=== PATIENT | female | born 1995 | race Caucasian/White ===

== ENCOUNTER → 2022-06-28 14:07 | Outpatient (CLI) | payer OTHER, SELFPAY ==
--- NOTE | ~2022-06-28 | US_ITS ---
EXAMINATION: US pelvic complete w TV DATE: 06/28/2022 14:42 INDICATION: Pelvic pain Comparison:No prior studies for comparison. TECHNIQUE: Multiple transabdominal and endovaginal sonographic images of the pelvis performed. FINDINGS: The uterus measures 7.8 x 3.3 x 4.3 cm. The endometrial complex measures 6 mm. The right ovary measures 1.9 x 1.4 x 1.2 cm and the left ovary measures 2.3 x 2.2 x 3.1 cm. There ar e small follicles in each ovary. Normal doppler signal in both ovaries. There is no free fluid in the pelvis. There are no abnormal masses seen on either side. IMPRESSION: 1. Unremarkable pelvic ultrasound. Reviewed, dictated and finalized at location A.
== END ==
PROVIDERS: PCP Physician Assistant; Visit Provider Nurse Practitioner
DX: R10.2 Pelvic and perineal pain (principal)
CPT/HCPCS: 76830; 76856

== ENCOUNTER 2024-05-10 11:07 | Emergency (ER) | payer OTHER, SELFPAY ==
--- NOTE | 2024-05-10 11:10 | ED.URI ---
HPI - URI/Sore Throat General Chief Complaint: Upper Respiratory Infection Stated Complaint: Strep Symptoms Time Seen by Provider: 05/10/24 11:15 Source: patient Mode of arrival: ambulatory Limitations: no limitations History of Present Illness HPI Narrative: Lisette is a 28-year-old female patient presenting to the clinic today with complaints of runny nose, cough, ear discomfort, congestion, and sore throat x2 days. She denies any known fever but does have a 99 degree temperature in the clinic today. Denies any shortness of breath or chest pain. MD elicited complaint: cough, sore throat, rhinorrhea and nasal congestion Related Data Home Medications Medication Instructions Recorded Confirmed lisdexamfetamine 10 mg chewable 10 mg PO DAILY 05/10/24 05/10/24 tablet spironolactone 50 mg tablet 50 mg PO DAILY 05/10/24 05/10/24 venlafaxine 75 mg capsule,extended 75 mg PO DAILY 05/10/24 05/10/24 release 24 hr Allergies Allergy/AdvReac Type Severity Reaction Status Date / Time No Known Allergies Allergy Verified 05/10/24 11:21 Review of Systems Review of Systems: Pertinent positives per HPI. Patient denies any fever, chills, rash, headache, visual changes, dizziness, shortness of breath, chest pain, palpitations, nausea, vomiting, diarrhea, constipation, abdominal pain, or any urinary issues. PMFSH Comments At the time of my signature, I reviewed and agree with the nursing past medical, surgical, social, and family history. There is no relevant family history pertinent to the patient complaint. Exam Narrative: General: Well-developed, well nourished, in no apparent distress Head: Normocephalic, atraumatic Eyes: Pupils equally round and reactive to light bilaterally, EOM intact, sclera and conjunctive clear, no discharge, lids normal Ears: TMs intact and clear, ear canals clear, no drainage, grossly hearing normal. Nose: Nares patent, clear nasal discharge, no inflammation, no sinus tenderness. Mouth: Oral pharynx red without lesions or masses, good dentition, MMM. Postnasal drip Neck: Supple, trachea midline, no enlargement of anterior or posterior cervical nodes, no thyroid masses or goiter palpable. Cardio: Regular rate and rhythm, s1 and s2 normal, no murmur appreciated. Resp: Clear to auscultation bilaterally, no rhonchi, rales, wheezing or rubs Course Course Emergency Course: Portions of this record may have been created with voice recognition software. Level of Care: Express Care Visit Vital Signs Vital signs: Vital signs reviewed MDM - URI/Sore Throat MDM Narrative Medical decision making narrative: At the time of visit patient is resting comfortably on the exam table. Patient appears to be nontoxic. Labs: Strep test was performed and was negative. We will send strep for culture. Plan: I suspect patient has URI with pharyngitis. Supportive measures were discussed with the patient and they voiced understanding discharge instructions and agrees to treatment plan. Return precautions reviewed Differential Diagnosis Differential diagnosis: Likely upper respiratory infection, otitis media, sinusitis, viral infection, bronchitis, influenza, pharyngitis and other (COVID) Discharge Plan Discharge Clinical Impression: Viral infection Upper respiratory infection Qualifiers: URI type: unspecified URI Qualified Code(s): J06.9 - Acute upper respiratory infection, unspecified Pharyngitis Qualifiers: Pharyngitis/tonsillitis etiology: unspecified etiology Qualified Code(s): J02.9 - Acute pharyngitis, unspecified Patient Disposition: Home, Self-Care Condition: Stable Instructions: Antibiotic Form, Pharyngitis (ED), Viral Syndrome (ED), Cold Symptoms (ED) Additional Instructions: Strep test was negative in the clinic today. We will send strep for culture if this comes back positive we will contact you in place you on antibiotics at that time. Increase fluids and stay we
[2024-05-10 11:12] VITALS: BP 110/55; PULSE 100; RESP 16; TEMP 37.6; O2SAT 100
== END 2024-05-10 11:33 | disposition home or self-care (01) ==
PROVIDERS: Emergency Provider Nurse Practitioner Family; PCP Internal Medicine
DX: B34.9 Viral infection, unspecified (principal); J06.9 Acute upper respiratory infection, unspecified; J02.9 Acute pharyngitis, unspecified
CPT/HCPCS: 87081; 87880; 99213; G0463